=== PATIENT | male | born 1990 | race Caucasian/White ===

== ENCOUNTER 2017-03-18 13:44 | Emergency (ER) | payer OTHER ==
[~2017-03-18] VITALS: Ht 180.3 cm; Wt 90.4 kg
[~2017-03-18 13:44] MED LIST: NEOM1SUS21 OTL
[2017-03-18 13:51] VITALS: TEMP 36.8; Ht 180.3 cm; Wt 90.4 kg
[2017-03-18] MEDS ORDERED: DIPHTHERIA/TETANUS/PERTUSSIS 0.5 ML SYR/VIAL IM. ONE (14:15)
[2017-03-18] MEDS ORDERED: XYLOCAINE 1%/SOD BICARB 20 ML VIAL INFIL ONE (14:15)
--- NOTE | 2017-03-18 14:32 | EMERGENCY ROOM VISIT NOTE ---
ED Visit Note First contact with patient: 13:56 CHIEF COMPLAINT: Right fifth finger laceration HISTORY OF PRESENT ILLNESS: This 26-year-old male presents the ER with chief complaint of a laceration to his right fifth finger. The patient states he was at work any screwdriver slipped and cut the distal aspect of his right fifth finger. The patient denies any numbness and tingling. He states the bleeding has stopped. The patient is right-hand dominant. The patient's tetanus is not up-to-date. REVIEW OF SYSTEMS: 6 system review was performed and was negative unless stated otherwise in history of present illness. PMH: The patient is healthy; peptic ulcer disease, cholecystectomy SOCIAL HISTORY: Patient lives with his . The patient admits to tobacco use and occasional alcohol use. PHYSICAL EXAM: Vital Signs: Were reviewed Reviewed Nurse's notes. GEN.: 26-year -old white male appears in no acute distress. MENTAL Status: Alert and oriented 3. RIGHT FIFTH FINGER: There is a 1.5 cm laceration on the dorsal aspect of the distal phalanx. The wound looks dirty. The edges are gaping widely apart. There is no foreign material in the wound and it looks clean. There is no active bleeding. No deep structures such as tendons or nerves are seen in the base of the wound. Extension and flexion of the fingers is full and strong. Sensation to pain and light touch is intact. EMERGENCY DEPARTMENT COURSE: The patient was evaluated Adacel was given. Wound Repair: Complexity: Basic. Verbal consent was obtained after the risks and benefits were explained, including but not limited to bleeding, scarring, infection, pain, and bone/joint /nerve damage. The skin was prepped with betadine and a sterile field set. The wound was anesthetized with 1.5ml of 1% buffered lidocaine. With direct pressure the bleeding subsided. Copious irrigation was performed using sterile saline. The wound was explored for foreign bodies and none found. Debridement was not performed. The wound edges were approximated using 5-0 Ethilon with 3 simple interrupted sutures. Hemostasis and excellent approximation was achieved. Antibacterial ointment and a sterile dressing applied. Detailed wound care instructions and signs and symptoms of infection reviewed with the patient. No complications and the patient tolerated the procedure well. DIAGNOSIS: 1.5 cm right fifth finger laceration DISCHARGE INSTRUCTIONS & TREATMENT: Keep wound clean and dry. No water on the area for 12-24 hrs then no soaking until sutures removed. Do not allow any crusting or dried blood to accumulate on sutures. If this occurs, use a 1:1 solution of hydrogen peroxide/water on a Q-tip to clean the wound. Use an antibiotic ointment for 3-4 days, then let wound dry. Suture removal in 8-10 days. Follow up sooner for any signs of infection (increasing redness, swelling , drainage). Ice and elevate for swelling and pain. Tylenol 650 mg every 6 hrs for pain. Current/Historical Medications Scheduled Jzdjbtmd-Hmqrhsznq-Og Otic (Cortisporin Otic), 5 DROPS OTL QID Allergies Coded Allergies: Amoxicillin (Verified Allergy, Intermediate, RASH, 07/09/12) Codeine (Verified Adverse Reaction, Severe, SEVERE ABD CRAMPING, 07/09/12) Uncoded Allergies: PENICILLIN (Allergy, Intermediate, RASH, 07/09/12) Vital Signs Date Time Temp Pulse Resp B/P (MAP) Pulse Ox O2 Delivery O2 Flow Rate FiO2 03/18/17 13:51 36.8 87 18 146/87 98 Room Air Medications Administered Medications (Trade) Dose Ordered Sig/Ninoska Route Start Time Stop Time Status Last Admin Dose Admin Diphtheria/ Pertussis/Tetanus Vacc (Adacel Inj) 0.5 ml ONCE ONCE IM. 03/18/17 14:15 03/18/17 14:16 DC 03/18/17 14:16 0.5 ML Departure Information Referrals No Doctor, Assigned (PCP) Patient Instructions [facility]
[2017-03-18 14:47] VITALS: BP 144/79; PULSE 66; O2SAT 98
== END 2017-03-18 14:45 | disposition home or self-care (01) ==
LOC: C.EDB 13:46 → C.EDD 14:45
DX: S61.216A Laceration without foreign body of right little finger without damage to nail, initial encounter (principal); W22.8XXA Striking against or struck by other objects, initial encounter; Y92.89 Other specified places as the place of occurrence of the external cause; Y99.0 Civilian activity done for income or pay; K27.9 Peptic ulcer, site unspecified, unspecified as acute or chronic, without hemorrhage or perforation

== ENCOUNTER 2017-11-10 04:43 | Emergency (ER) | payer BC, OTHER ==
[~2017-11-10] VITALS: Ht 177.8 cm; Wt 91.0 kg
[2017-11-10 04:46] VITALS: TEMP 37.1; Ht 177.8 cm; Wt 91.0 kg
[2017-11-10] MEDS ORDERED: KETOROLAC TROMETHAMINE 60 MG/2 ML VIAL IM STA (04:57)
[2017-11-10] MEDS ORDERED: CIPRO 0.2%/HYDROCORTISONE 1% OTIC SUSP 10 ML BTL OT STA (04:57)
[2017-11-10] MEDS ORDERED: PERCOCET HOME PACK PO ONE (05:00)
--- NOTE | 2017-11-10 05:04 | EMERGENCY ROOM VISIT NOTE ---
History Report prepared by Shannan: Cierra Madrigal Under the Supervision of: Dr. Leeann Duval D.O. First contact with patient: 04:49 Chief Complaint: EAR PAIN Stated Complaint: LEFT EAR PAIN History of Present Illness The patient is a 27 year old male who presents to the Emergency Room with complaints of left ear pain beginning at 0100 yesterday. He states that yesterday, his ear pain was so intense that it woke him up at 0100. He reports he tried rinsing it out with peroxide and water but it did not modify his symptoms. The patient states he tried going to sleep tonight but his pain woke him up again 0100. He has a sore throat on the left side but denies a cough, abdominal pain, swimming in a pool, or being in a hot tub. He notes he has had swimmer's ear in the past. Source of History: patient Onset: 0100 yesterday Position: ear (left) Symptom Intensity: intense Quality: other (left ear pain) Associated Symptoms: + sorethroat (left side), No cough, No abdominal pain Note: Negative swimming in a pool or being in a hot tub Review of Systems See HPI for pertinent positives & negatives. A total of 10 systems reviewed and were otherwise negative. Past Medical & Surgical Medical Problems: (1) Gallbladder disease Surgical Problems: (1) History of inguinal hernia repair (2) S/P cholecystectomy Family History No pertinent family history Social History Smoking Status: Current Every Day Smoker Smokeless Tobacco Use: Yes Alcohol Use: occasionally Housing Status: lives with family Occupation Status: employed Current/Historical Medications No Active Prescriptions or Reported Meds Allergies Coded Allergies: Amoxicillin (Verified Allergy, Intermediate, RASH, 11/10/17) Penicillins (Unverified Allergy, Unknown, RASH, 11/10/17) Codeine (Verified Adverse Reaction, Severe, SEVERE ABD CRAMPING, 11/10/17) Physical Exam Vital Signs Date Time Temp Pulse Resp B/P (MAP) Pulse Ox O2 Delivery O2 Flow Rate FiO2 11/10/17 05:40 70 16 143/89 98 11/10/17 04:46 37.1 104 20 143/94 96 Room Air Physical Exam HEENT: Head - normocephalic and atraumatic Pupils are equal, round, and reactive to light. Extraocular eye muscles are intact, and sclera are anicteric. Nose - moist nasal mucosa without discharge. Mouth - moist buccal mucosa. Oropharynx is nonerythematous and there is no tonsillar exudate or edema noted. Ear: Left ear canal is edematous. There is pain with manipulation of the pinna. Tympanic membrane appears normal. The right ear is normal. Neck: Supple; no nuchal rigidity or cervical lymphadenopathy. Heart: Regular rate and rhythm. There is a normal S1 and S2 with no murmurs, clicks, or gallops appreciated. Lungs: Clear to auscultation bilaterally with no wheezes, rales, or rhonchi. Abdomen: Soft, completely nontender, nondistended, with good bowel sounds. There are no palpable pulsatile masses or hepatosplenomegaly. There is no guarding, rigidity, or rebound noted. Extremities: No evidence of cyanosis, clubbing, or edema. There are easily palpable peripheral pulses. Skin: warm and dry with good turgor and no rashes. Medical Decision & Procedures Medications Administered Medications (Trade) Dose Ordered Sig/Ninoska Route Start Time Stop Time Status Last Admin Dose Admin Ketorolac Tromethamine (Toradol Inj) 60 mg NOW STAT IM 11/10/17 04:57 11/10/17 05:00 DC 11/10/17 05:18 60 MG Ciprofloxacin/ Hydrocortisone (Cipro Hc Otic Susp) 2 drops NOW STAT OT 11/10/17 04:57 11/10/17 05:00 DC 11/10/17 05:18 2 DROPS Procedure Ciprofloxacin/Hydrocortisone OT, Toradol Inj IM, Oxycodone/Acetaminophen 1 homepack PO ED Course 0452: Past medical records reviewed. The patient was evaluated in room A12. A complete history and physical exam was performed. 0457: Ordered Ciprofloxacin/Hydrocortisone 2 drops OT, Toradol Inj 60 mg IM 0500: Ordered Oxycodone/Acetaminophen 1 homepack PO 0515: Upon reevaluation, the patient will be given ear drops. I discussed findings and results with him. He verbalized agreement of the treatment plan. He was discharged home. Medical Decision The patient is a 27 year old male who presents to the Emergency Room with complaints of left ear pain beginning at 0100 yesterday. Differential diagnosis includes otitis media, otitis externa, URI, pharyngitis, as well as others were entertained. On physical exam, the patient has obvious edema to the left ear canal consistent with otitis externa. There is exquisite discomfort with manipulation of the pinna. Patient was given Toradol for pain and a Percocet home pack to take home. He was given Cipro otic suspension for the infection. He was encouraged to avoid getting any water in his ears over the next 7-10 days. Medication Reconcilliation Current Medication List: was personally reviewed by me Blood Pressure Screening Patient's blood pressure: Elevated blood pressure Blood pressure disposition: Elevated BP felt to be situational Impression Primary Impression: Otitis externa Scribe Attestation The scribe's documentation has been prepared under my direction and personally reviewed by me in its entirety. I confirm that the note above accurately reflects all work, treatment, procedures, and medical decision making performed by me. Departure Information Dispostion Home / Self-Care Prescriptions No Active Prescriptions or Reported Meds Referrals No Doctor, Assigned (PCP) Forms HOME CARE DOCUMENTATION FORM, IMPORTANT VISIT INFORMATION, WORK / SCHOOL INSTRUCTIONS Patient Instructions My [facility] Additional Instructions Rest. Motrin - 800mg every 6-8 hours with food for pain. Percocet - 1 tab. every 4 hours for severe pain. You cannot drive while taking this med. Ear drops to left ear - 3 drops to left ear every 12 hours Problem Qualifiers Primary Impression: Otitis externa Otitis externa type: unspecified type Chronicity: acute Laterality: left Qualified Codes: H60.502 - Unspecified acute noninfective otitis externa, left ear
[2017-11-10 05:40] VITALS: BP 143/89; PULSE 70; O2SAT 98
== END 2017-11-10 05:35 | disposition home or self-care (01) ==
LOC: C.EDB 04:44 → C.EDA 05:35
DX: H60.92 Unspecified otitis externa, left ear (principal); F17.200 Nicotine dependence, unspecified, uncomplicated; Z88.0 Allergy status to penicillin; Z88.6 Allergy status to analgesic agent